=== PATIENT | female | born 1980 | race African-American/Black ===

== ENCOUNTER 2017-09-22 09:57 | Emergency (ER) | payer OTHER ==
[2017-09-22 10:03] VITALS: BP 133/69; BMI 35.5
--- NOTE | 2017-09-22 10:30 | DR.GENAD ---
HPI - PCP Primary Care Physician: yola - HPI Comment HPI Comment: RIGHT LOWER BACK PAIN TIMES 3 DAYS. WORSE TODAY. - Complaint/Symptoms Chief Complaint Doctors Comments: RT LOWER BACK PAIN. . Chief Complaint:: patient stated she has been having lower right sided back pain and she is 6 months . - Nurses notes reviewed Nurses Notes Review: Yes - Source History Provided: Patient - Mode of Arrival Mode of Arrival: Ambulatory - Timing Onset of Chief Complaint: 09/20/17 Came on: Suddenly - Duration Duration: Constant Duration: Days - Severity Severity: Moderate PMH - PMH Past Medical History: No Past Surgical History: Yes Surgical History: Cholecystectomy - Family History History of Family Medical Conditions: Yes Family Medical History: Cancer, Hypertension - Social History Does patient currently use any type of tobacco product: No Have you used tobacco products in the last 12 months: No Type of Tobacco Use: None Does any household member use tobacco: No Alcohol Use: None Do you use any recreational Drugs:: No Lives With: Family Lives Where: Home - infectious screening In the last 2 months have you had wt loss of >10#?: NO Have you had fever, night sweats or hemotysis?: No Have you traveled outside the country in the last 6 months?: No Isolation: Standard PE - Vital Signs Vitals: Temperature 98.3 F Pulse Rate 98 Respiratory Rate 16 Blood Pressure 133/69 O2 Sat by Pulse Oximetry 96 ROR - Labs Reviewed Result Diagrams: 09/22/17 11:31 09/22/17 11:31 Laboratory: WBC 10.0 X10^3/uL (3.6-10.0) 09/22/17 11:31 RBC 3.68 X10^6/uL (3.5-5.4) 09/22/17 11:31 Hgb 11.5 g/dL (12.0-16.0) L 09/22/17 11:31 Hct 32.9 % (36.0-47.0) L 09/22/17 11:31 MCV 89.4 fL (80.0-100.0) 09/22/17 11:31 MCH 31.2 pg (27.0-34.0) 09/22/17 11:31 MCHC 34.9 g/dL (33.0-35.0) 09/22/17 11:31 RDW 13.6 % (11.6-16.5) 09/22/17 11:31 Plt Count 169 X10^3/uL (150.0-450.0) 09/22/17 11:31 MPV 9.1 fL (7.4-11.0) 09/22/17 11:31 Neut % 83.3 % (42.0-75.0) H 09/22/17 11:31 Lymph % 10.8 % (21.0-51.0) L 09/22/17 11:31 [place] % 5.1 % (0.0-13.0) 09/22/17 11:31 Eos % 0.5 % (0.9-2.9) L 09/22/17 11:31 Baso % 0.3 % (0.2-1.0) 09/22/17 11:31 Neut # 8.4 x10^3/uL (2.2-4.8) H 09/22/17 11:31 Lymph # 1.1 X10^3/uL (1.3-2.9) L 09/22/17 11:31 [place] # 0.5 x10^3/uL (0.3-0.8) 09/22/17 11:31 Eos # 0.1 x10^3/uL (0.0-0.2) 09/22/17 11:31 Baso # 0.0 X10^3/uL (0.0-0.1) 09/22/17 11:31 Absolute Nucleated RBC 0.0 /100WBC 09/22/17 11:31 Sodium 137 mmol/L (136-145) 09/22/17 11:31 Corrected Sodium TNP 09/22/17 11:31 Potassium 3.6 mmol/L (3.5-5.1) 09/22/17 11:31 Chloride 105 mmol/L (98-107) 09/22/17 11:31 Carbon Dioxide 24.1 mmol/L (21-32) 09/22/17 11:31 BUN 6 mg/dL (7-18) L 09/22/17 11:31 Creatinine 0.54 mg/dL (0.55-1.02) L 09/22/17 11:31 Est GFR (MDRD) Af Amer > 60 (>60) 09/22/17 11:31 Est GFR (MDRD) Non-Af > 60 (>60) 09/22/17 11:31 Glucose 100 mg/dL (65-99) H 09/22/17 11:31 Calcium 8.6 mg/dL (8.5-10.1) 09/22/17 11:31 Corrected Calcium 9.9 mg/dL (8.5-10.1) 09/22/17 11:31 Total Bilirubin 0.20 mg/dL (0.2-1.0) 09/22/17 11:31 AST 12 Units/L (15-37) L 09/22/17 11:31 ALT 16 Units/L (12-78) 09/22/17 11:31 Alkaline Phosphatase 48 Units/L (46-116) 09/22/17 11:31 Total Protein 5.9 g/dL (6.4-8.2) L 09/22/17 11:31 Albumin 2.4 g/dL (3.4-5.0) L 09/22/17 11:31 Globulin 3.5 g/dL (2.5-4.5) 09/22/17 11:31 Albumin/Globulin Ratio 0.7 Ratio (1.1-2.1) L 09/22/17 11:31 HCG, Quant 5725 mIU/mL (0-6) H 09/22/17 11:31 Specimen Type Clean catch urine 09/22/17 10:09 Urine Color Yellow (YELLOW) 09/22/17 10:09 Urine Appearance Cloudy (CLEAR) 09/22/17 10:09 Urine pH 6.0 (5.0 - 8.0) 09/22/17 10:09 Ur Specific [place] 1.020 (1.000-1.030) 09/22/17 10:09 Urine Protein 1+ (NEGATIVE) 09/22/17 10:09 Urine Glucose (UA) Negative (NEGATIVE) 09/22/17 10:09 Urine Ketones 1+ (NEGATIVE) 09/22/17 10:09 Urine Occult Blood Negative (NEGATIVE) 09/22/17 10:09 Urine Nitrite Negative (NEGATIVE) 09/22/17 10:09 Urine Bilirubin Negative (NEGATIVE) 09/22/17 10:09 Urine Urobilinogen Normal (NORMAL) 09/22/17 10:09 Ur Leukocyte Esterase 2+ (NEGATIVE) 09/22/17 10:09 Urine RBC Rare /HPF (NEGATIVE) 09/22/17 10:09 Urine WBC 3-5 /HPF (NEGATIVE) 09/22/17 10:09 Ur Squamous Epith Cells Many /HPF (NEGATIVE) 09/22/17 10:09 Amorphous Sediment 2+ /HPF (NEGATIVE) 09/22/17 10:09 Urine Bacteria Trace /HPF (NEGATIVE) 09/22/17 10:09 Ur Culture Indicated? No/not indicated 09/22/17 10:09 - Discharge Plan Disposition: 01 HOME, SELF-CARE Condition: Stable Prescriptions: Acetaminophen with Codeine [Tylenol/Codeine #3 300-30 mg] 1 tab PO Q6H PRN #15 tab PRN Reason: Pain - Follow ups/Referrals Follow ups/Referrals: ELSA SMITH [Primary Care Provider] - 1 day - Instructions Instructions: Back Pain in Additional Instructions: RETURN TO ED IF WORSE.
[2017-09-22 10:33] LABS: BILIRUBIN,URINE NEGATIVE (NEGATIVE); BLOOD/HEMOGLOBIN,URINE NEGATIVE (NEGATIVE); GLUCOSE, URINE NEGATIVE (NEGATIVE); KETONES,URINE 1+ (NEGATIVE); LEUKOCYTE ESTERASE ,URINE 2+ (NEGATIVE); NITRITES,URINE NEGATIVE (NEGATIVE); PROTEIN,URINE 1+ (NEGATIVE); UROBILINOGEN,URINE NORMAL (NORMAL)
[2017-09-22 11:00] LABS: APPEARANCE,URINE CLOUDY (CLEAR); COLOR,URINE YELLOW (YELLOW)
[2017-09-22 11:01] LABS: AMORPHOUS SEDIMENT,UR 2+ /HPF (NEGATIVE); BACTERIA,URINE TRACE /HPF (NEGATIVE); RBC,URINE RARE /HPF (NEGATIVE); SQUAMOUS EPITHELIAL CELL,UR MANY /HPF (NEGATIVE)
[2017-09-22] MEDS ORDERED: TYLENOL 500 MG TAB EXTRA STRENGTH PO ONE ×2 (11:25→11:30)
[2017-09-22 11:41] LABS: BASOPHILS % (AUTO) 0.3 % (0.2-1.0); EOSINOPHILS # (AUTO) 0.1 x10^3/uL (0.0-0.2); EOSINOPHILS % (AUTO) 0.5 % (0.9-2.9); HEMATOCRIT 32.9 % (36.0-47.0); HEMOGLOBIN 11.5 g/dL (12.0-16.0); LYMPHOCYTES # (AUTO) 1.1 X10^3/uL (1.3-2.9); LYMPHOCYTES % (AUTO) 10.8 % (21.0-51.0); MEAN CORPUSCULAR HEMOGLOBIN 31.2 pg (27.0-34.0); MEAN CORPUSCULAR HGB CONC 34.9 g/dL (33.0-35.0); MEAN CORPUSCULAR VOLUME 89.4 fL (80.0-100.0); MEAN PLATELET VOLUME 9.1 fL (7.4-11.0); MONOCYTES # (AUTO) 0.5 x10^3/uL (0.3-0.8); MONOCYTES % (AUTO) 5.1 % (0.0-13.0); NEUTROPHILS # (AUTO) 8.4 x10^3/uL (2.2-4.8); NEUTROPHILS % (AUTO) 83.3 % (42.0-75.0); PLATELET COUNT 169 X10^3/uL (150.0-450.0); RED BLOOD COUNT 3.68 X10^6/uL (3.5-5.4); RED CELL DISTRIBUTION WIDTH 13.6 % (11.6-16.5)
[2017-09-22 11:52] LABS: ALANINE AMINOTRANSFERASE 16 Units/L (12-78); ALBUMIN 2.4 g/dL (3.4-5.0); ALKALINE PHOSPHATASE 48 Units/L (46-116); ASPARTATE AMINO TRANSFERASE 12 Units/L (15-37); BLOOD UREA NITROGEN 6 mg/dL (7-18); CALCIUM 8.6 mg/dL (8.5-10.1); CARBON DIOXIDE 24.1 mmol/L (21-32); CHLORIDE 105 mmol/L (98-107); COR CA(FOR HYPOALB) 9.9 mg/dL (8.5-10.1); CREATININE 0.54 mg/dL (0.55-1.02); SODIUM 137 mmol/L (136-145); TOTAL PROTEIN 5.9 g/dL (6.4-8.2); eGFR BLACK RACES > 60 (>60); eGFR NON BLACK RACES > 60 (>60)
[2017-09-22 12:20] LABS: HCG,QUANTITATIVE 5725 mIU/mL (0-6)
--- NOTE | 2017-09-22 13:08 | US ---
HISTORY: Lower back pain, IUP Study: Limited OB sonogram Comparison: None Technique: Multiple grayscale sonographic images were obtained. Findings: There is a single intrauterine gestation in vertex present a chávez. The placenta is posterior. h eart rate 148 beats per minute. Biparietal diameter 6 cm corresponding to 23 weeks 4 days. Head circu mference 22 cm corresponding to 23 weeks 5 days. Abdominal circumference 19 cm corresponding to 23 we eks 6 days. Femur length 4 cm corresponding to 23 weeks 5 days. IMPRESSION: Single viable intrauterine gestation 23 weeks 5 days +/-1 week gestational age with an estimated date of delivery 01/14/2018 Reported By:
== END 2017-09-22 14:00 | disposition home or self-care (01) ==
LOC: ER 10:15
DX: M54.5 Low back pain (principal); Z3A.00 Weeks of gestation of pregnancy not specified
CPT/HCPCS: 36415; 76815; 80053; 81001; 84702; 85025; 99282; 99284

== ENCOUNTER 2017-12-30 06:13 | Emergency (ER) | payer OTHER ==
[2017-12-30] MEDS ORDERED: D5 1/2 NS 1000 ML 1,000 ML IV ONE (06:19)
[2017-12-30 06:38] VITALS: BP 142/89; BMI 31.9
[2017-12-30 06:48] LABS: BASOPHILS % (AUTO) 0.4 % (0.2-1.0); EOSINOPHILS % (AUTO) 0.4 % (0.9-2.9); HEMATOCRIT 32.3 % (36.0-47.0); HEMOGLOBIN 11.4 g/dL (12.0-16.0); LYMPHOCYTES # (AUTO) 1.1 X10^3/uL (1.3-2.9); LYMPHOCYTES % (AUTO) 17.3 % (21.0-51.0); MEAN CORPUSCULAR HEMOGLOBIN 30.6 pg (27.0-34.0); MEAN CORPUSCULAR HGB CONC 35.1 g/dL (33.0-35.0); MEAN CORPUSCULAR VOLUME 87.2 fL (80.0-100.0); MEAN PLATELET VOLUME 11.2 fL (7.4-11.0); MONOCYTES # (AUTO) 0.8 x10^3/uL (0.3-0.8); MONOCYTES % (AUTO) 12.3 % (0.0-13.0); NEUTROPHILS # (AUTO) 4.6 x10^3/uL (2.2-4.8); NEUTROPHILS % (AUTO) 69.6 % (42.0-75.0); RED BLOOD COUNT 3.71 X10^6/uL (3.5-5.4); RED CELL DISTRIBUTION WIDTH 13.7 % (11.6-16.5); WHITE BLOOD COUNT 6.6 X10^3/uL (3.6-10.0)
[2017-12-30 06:51] LABS: PLATELET COUNT 112 X10^3/uL (150.0-450.0)
[2017-12-30 06:54] LABS: AMNISURE ROM TEST NO MEMBRANES RUPTURE (NO RUPTURE)
[2017-12-30 06:57] LABS: ALANINE AMINOTRANSFERASE 15 Units/L (12-78); ALKALINE PHOSPHATASE 122 Units/L (46-116); ASPARTATE AMINO TRANSFERASE < 6 Units/L (15-37); BLOOD UREA NITROGEN 7 mg/dL (7-18); CALCIUM 8.5 mg/dL (8.5-10.1); CARBON DIOXIDE 21.3 mmol/L (21-32); CHLORIDE 105 mmol/L (98-107); COR CA(FOR HYPOALB) 10.1 mg/dL (8.5-10.1); COR NA(FOR HYPERGLY) 139 mmol/L (136-145); SODIUM 138 mmol/L (136-145); TOTAL PROTEIN 5.6 g/dL (6.4-8.2); eGFR BLACK RACES > 60 (>60); eGFR NON BLACK RACES > 60 (>60)
[2017-12-30] MEDS ORDERED: D5 1/2 NS 1000 ML 1,000 ML IV SCH (07:00)
--- NOTE | 2017-12-31 07:16 | DR.PREG ---
HPI - PCP Primary Care Physician: LUIS - Chief Complaint Chief Complaint:: HAD A LARGE GUSH OF CLEAR FLUID AT 0550 THIS AM - Source History Provided: Patient - Mode of Arrival Mode of Arrival: Wheelchair - Context : 6 Para: 2 - Timing Onset of Chief Complaint: 12/30/17 Pain: Regular - Duration Pain Strength: Strong PMH - PMH Past Medical History: No Past Surgical History: Yes Surgical History: Cholecystectomy - Family History History of Family Medical Conditions: Yes Family Medical History: Cancer, Hypertension - Social History Does patient currently use any type of tobacco product: No Have you used tobacco products in the last 12 months: No Type of Tobacco Use: None Does any household member use tobacco: No Alcohol Use: None Do you use any recreational Drugs:: No Lives With: Spouse, Family Lives Where: Home - infectious screening Have you traveled outside the country in the last 6 months?: No Isolation: Standard PE - Vital Signs Vitals: Pulse Rate 77 Respiratory Rate 22 Blood Pressure 142/89 O2 Sat by Pulse Oximetry 99 ROR - Labs Reviewed Result Diagrams: 12/30/17 06:35 12/30/17 06:35 Laboratory: WBC 6.6 X10^3/uL (3.6-10.0) 12/30/17 06:35 RBC 3.71 X10^6/uL (3.5-5.4) 12/30/17 06:35 Hgb 11.4 g/dL (12.0-16.0) L 12/30/17 06:35 Hct 32.3 % (36.0-47.0) L 12/30/17 06:35 MCV 87.2 fL (80.0-100.0) 12/30/17 06:35 MCH 30.6 pg (27.0-34.0) 12/30/17 06:35 MCHC 35.1 g/dL (33.0-35.0) H 12/30/17 06:35 RDW 13.7 % (11.6-16.5) 12/30/17 06:35 Plt Count 112 X10^3/uL (150.0-450.0) L 12/30/17 06:35 MPV 11.2 fL (7.4-11.0) H 12/30/17 06:35 Neut % 69.6 % (42.0-75.0) 12/30/17 06:35 Lymph % 17.3 % (21.0-51.0) L 12/30/17 06:35 [place] % 12.3 % (0.0-13.0) 12/30/17 06:35 Eos % 0.4 % (0.9-2.9) L 12/30/17 06:35 Baso % 0.4 % (0.2-1.0) 12/30/17 06:35 Neut # 4.6 x10^3/uL (2.2-4.8) 12/30/17 06:35 Lymph # 1.1 X10^3/uL (1.3-2.9) L 12/30/17 06:35 [place] # 0.8 x10^3/uL (0.3-0.8) 12/30/17 06:35 Eos # 0.0 x10^3/uL (0.0-0.2) 12/30/17 06:35 Baso # 0.0 X10^3/uL (0.0-0.1) 12/30/17 06:35 Absolute Nucleated RBC 0.1 /100WBC 12/30/17 06:35 Sodium 138 mmol/L (136-145) 12/30/17 06:35 Corrected Sodium 139 mmol/L (136-145) 12/30/17 06:35 Potassium 3.8 mmol/L (3.5-5.1) 12/30/17 06:35 Chloride 105 mmol/L (98-107) 12/30/17 06:35 Carbon Dioxide 21.3 mmol/L (21-32) 12/30/17 06:35 BUN 7 mg/dL (7-18) 12/30/17 06:35 Creatinine 0.70 mg/dL (0.55-1.02) 12/30/17 06:35 Est GFR (MDRD) Af Amer > 60 (>60) 12/30/17 06:35 Est GFR (MDRD) Non-Af > 60 (>60) 12/30/17 06:35 Glucose 128 mg/dL (65-99) H 12/30/17 06:35 Calcium 8.5 mg/dL (8.5-10.1) 12/30/17 06:35 Corrected Calcium 10.1 mg/dL (8.5-10.1) 12/30/17 06:35 Total Bilirubin 0.30 mg/dL (0.2-1.0) 12/30/17 06:35 AST < 6 Units/L (15-37) L 12/30/17 06:35 ALT 15 Units/L (12-78) 12/30/17 06:35 Alkaline Phosphatase 122 Units/L (46-116) H 12/30/17 06:35 Total Protein 5.6 g/dL (6.4-8.2) L 12/30/17 06:35 Albumin 2.0 g/dL (3.4-5.0) L 12/30/17 06:35 Globulin 3.6 g/dL (2.5-4.5) 12/30/17 06:35 Albumin/Globulin Ratio 0.6 Ratio (1.1-2.1) L 12/30/17 06:35 Placental [id number] No membranes rupture (NO RUPTURE) 12/30/17 06:26 RPR Nonreactive (NONREACTIVE) 12/30/17 06:35 Blood Type A POSITIVE 12/30/17 06:35 Antibody Screen Negative 12/30/17 06:35 - Discharge Plan Disposition: ADMITTED INPATIENT Condition: Stable - Follow ups/Referrals Follow ups/Referrals: ELSA SMITH [Primary Care Provider] - 3 days - Instructions
== END 2017-12-30 06:40 | disposition other institution (70) ==
LOC: ER 06:13
DX: O88.113 Amniotic fluid embolism in pregnancy, third trimester (principal); Z3A.37 37 weeks gestation of pregnancy
CPT/HCPCS: 36415; 80053; 84112; 85025; 86592; 86850; 86900; 86901; 96365; 99284; A4222; J7042

== ENCOUNTER 2017-12-30 06:37 | Inpatient (IN) | payer OTHER ==
[2017-12-30] MEDS ORDERED: LR 1000 ML IV 1,000 ML IV ONE ×2 (06:46→07:00)
[2017-12-30] MEDS ORDERED: NAROPIN EPIDURAL 0.2% + FENTANYL 90MCG 60 ML EPI ONE (06:47)
[2017-12-30] MEDS ORDERED: D5 1/2 NS 1L W PITOCIN 20 UNITS/L 20 UNITS/1,000 ML BAG IV ONE ×2 (06:47→12:47)
[2017-12-30] MEDS ORDERED: PITOCIN ONE (06:47)
[2017-12-30] MEDS ORDERED: FENTANYL INJ 100 mcg ONE (06:47)
[2017-12-30] MEDS ORDERED: NUBAIN INJ 10 ONE (06:50)
[2017-12-30] MEDS ORDERED: PITOCIN IVP ONE (07:02)
[2017-12-30] MEDS ORDERED: NUBAIN INJ 200 MG VIAL MULTIDOSE IVP PRN (07:02)
[2017-12-30] MEDS ORDERED: D5LR 1L W PITOCIN 10 UNITS/L 10 UNITS/1,000 ML BAG IV PRN (07:02)
[2017-12-30] MEDS ORDERED: XYLOCAINE 1 % (PLAIN) ONE (07:44)
[2017-12-30] MEDS ORDERED: FENTANYL INJ 100 mcg EPI ONE (07:50)
[2017-12-30] MEDS ORDERED: NAROPIN EPIDURAL 0.2% 60 ML with FENTANYL INJ 100 mcg 90 MCG IVP SCH ×2 (07:50)
[2017-12-30] MEDS ORDERED: D5 1/2 NS 1000 ML 1,000 ML IV SCH (08:00)
[2017-12-30] MEDS ORDERED: D5LR 1L W PITOCIN 10 UNITS/L 10 UNITS/1,000 ML BAG IV ONE (08:38)
[2017-12-30] MEDS ORDERED: MOTRIN TAB 800 MG PO PRN (11:20)
[2017-12-30] MEDS ORDERED: PHENERGAN INJ 25 MG IV PRN ×2 (11:20→12:51)
--- NOTE | 2017-12-30 11:20 | DR.OB ---
OB Quick Note - Assessment/Plan Assessment/Plan: Delivery Note [facility] 12/30/17 at 11:15am Patient complete and pushing. Head delivered over intact perineum. No nuchal cord. Nose and mouth bulb suctioned. Body delivered over intact perineum. Cord clamped x 2 and cut. handed to attendant. A true knot noted (loose ) in cord. Cord sent for gases. Placenta delivered spontaneously / intact / 3 vessel cord. No CVX / vaginal / perineal tears noted. Viable male , VTX/ OA, wt=8'9" and 8/9, stable to NBN. Mother stable to RR. PEN=[id number].
[2017-12-30] MEDS ORDERED: ANCEF 1 GM IV PREMIX* 1 GM/50 ML BAG IV ONE (11:23)
[2017-12-30] MEDS ORDERED: NS IRRIGATION 1000 ML 1,000 ML IR ONE (11:48)
[2017-12-30] MEDS ORDERED: D5 1/2 NS 1000 ML 1,000 ML with PITOCIN 20 UNITS IV SCH ×2 (12:00)
[2017-12-30] MEDS ORDERED: DILAUDID INJ IVP PRN (12:20)
[2017-12-30] MEDS ORDERED: PHENERGAN INJ 25 MG IVP PRN (12:20)
[2017-12-30] MEDS ORDERED: ZOFRAN INJ 4 MG VIAL IVP PRN (12:20)
[2017-12-30] MEDS ORDERED: REGLAN INJ 10 MG VIAL IVP PRN (12:20)
[2017-12-30] MEDS ORDERED: BENADRYL INJ 50 MG VIAL IVP PRN (12:20)
[2017-12-30] MEDS ORDERED: AMBIEN PO PRN ×2 (12:51)
[2017-12-30] MEDS ORDERED: MILK OF MAGNESIA PO PRN ×2 (12:51)
[2017-12-30] MEDS ORDERED: DERMOPLAST SPRAY TOP PRN (12:51)
[2017-12-30] MEDS ORDERED: ADACEL TDaP IM ONE (12:51)
[2017-12-30] MEDS ORDERED: MYLICON TAB 80 MG CHEW PO PRN (12:51)
[2017-12-30] MEDS: PERCOCET TAB 5/325 MG PO PRN ×3 (13:40→23:23)
[2017-12-30] MEDS: D5 1/2 NS 1000 ML 1,000 ML with PITOCIN 20 UNITS IV SCH ×4 (14:30→23:23)
[2017-12-30] MEDS: MOTRIN TAB 800 MG PO PRN (19:05)
[2017-12-30] MEDS: ZANTAC PO SCH (20:57)
[2017-12-31] MEDS: D5 1/2 NS 1000 ML 1,000 ML with PITOCIN 20 UNITS IV SCH ×6 (04:03→20:54)
[2017-12-31] MEDS: PERCOCET TAB 5/325 MG PO PRN ×4 (04:04→23:43)
[2017-12-31 05:21] LABS: HEMOGLOBIN 11.3 g/dL (12.0-16.0)
[2017-12-31] MEDS: PRENATAL PLUS PO SCH (08:21)
[2017-12-31] MEDS: ZANTAC PO SCH ×2 (09:56→20:54)
[2017-12-31] MEDS: BACTROBAN OINT TOP SCH ×2 (14:18→21:39)
[2017-12-31] MEDS: MOTRIN TAB 800 MG PO PRN (16:33)
[2018-01-01] MEDS: MOTRIN TAB 800 MG PO PRN ×2 (04:25→12:32)
[2018-01-01] MEDS: D5 1/2 NS 1000 ML 1,000 ML with PITOCIN 20 UNITS IV SCH ×2 (04:45)
[2018-01-01] MEDS: BACTROBAN OINT TOP SCH ×2 (05:18→14:14)
[2018-01-01] MEDS: PRENATAL PLUS PO SCH (10:25)
[2018-01-01] MEDS: ZANTAC PO SCH (10:25)
[2018-01-01 12:23] VITALS: BP 149/81
== END 2018-01-01 16:30 | disposition home or self-care (01) | DRG 767 ==
LOC: LD 06:37 → MED/SURG 13:18
PROVIDERS: ADMIT Specialist; ATTEND Specialist
PROC: 0UB70ZZ Excision of Bilateral Fallopian Tubes, Open Approach (ICD-10-PCS; 2017-12-30)
PROC: 3E0234Z Introduction of Serum, Toxoid and Vaccine into Muscle, Percutaneous Approach (ICD-10-PCS; 2017-12-30)
PROC: 10E0XZZ Delivery of Products of Conception, External Approach (ICD-10-PCS; principal; 2017-12-30 13:00)
DX: O24.410 Gestational diabetes mellitus in pregnancy, diet controlled (principal); Z37.0 Single live birth; O09.513 Supervision of elderly primigravida, third trimester; O99.613 Diseases of the digestive system complicating pregnancy, third trimester; Z23 Encounter for immunization; Z3A.37 37 weeks gestation of pregnancy; Z30.2 Encounter for sterilization
CPT/HCPCS: 09167; 36415; 59409; 85014; 85018; A4222; S0197; J0690; J2001; J2300; J2590; J3010; J7042; J7120